=== PATIENT | male | born 1950 | race Caucasian/White ===

== ENCOUNTER → 2017-09-07 | Outpatient (CLI) | payer MEDICARE ==
[~2017-09-07] MED LIST: AVODART0.5 MG; FLOMAX0.4 MG PO; LEVAQUIN500 MG PO; LEVOTHYROXINE112 MCG PO; LIPITOR20 MG PO; NASACORT NS; SINGULAIR10 MG PO; TYLENOL WITH C1 EACH PO
--- NOTE | 2017-09-07 14:57 | Diagnostic Imaging Report ---
PROCEDURE:X-RAY ABDOMEN - KUB COMPARISON:[facility], CT, CT ABDOMEN/PELVIS WO, 05/15/2017, 8:33. INDICATIONS:CALCULI OF KIDNEY FINDINGS: There is a non-obstructed bowel-gas pattern. There are no calcifications projected over the renal shadows, expected course of the ureters or bladder. Multiple pelvic phleboliths. There are no acute osseous abnormalities. Compression deformity of the T8 and L2 vertebral bodies with vertebroplasty changes. CONCLUSION: No radiopaque densities project over the renal shadows, expected course of the ureters or bladder. Specifically, the previously visualized punctate and 2 mm nonobstructing calculi in the inferior pole of the left kidney on CT dated 05/15/2017 are not seen in the current exam. Bairon Huitron M.D. Dictated by: Bairon Huitron M.D. on 09/07/2017 at 14:57 Electronically approved by: Bairon Huitron M.D. on 09/07/2017 at 14:57
== END ==
LOC: RAD 12:40
PROVIDERS: ATTEND Urology
DX: N20.0 Calculus of kidney (principal)
CPT/HCPCS: 74018

== ENCOUNTER → 2018-01-26 | Outpatient (CLI) | payer MEDICARE ==
--- NOTE | 2018-01-26 11:23 | Diagnostic Imaging Report ---
PROCEDURE:X-RAY ABDOMEN - KUB COMPARISON:KUB 09/07/[address] 05/15/2017 INDICATIONS:CALCULUS OF KIDNEY FINDINGS: There is a non-obstructed bowel-gas pattern. There are no calcifications projected over the renal shadows, expected course of the ureters or bladder. The tiny calculi seen on CT 05/15/2017 are not radiographically apparent. Multiple pelvic phleboliths are unchanged. There are no acute osseous abnormalities. Compression deformity of the L2 vertebral body with vertebroplasty changes. CONCLUSION: No radiopaque urolithiasis. Dictated by: Abiel Lawrence M.D. on 01/26/2018 at 11:27 Electronically approved by: Abiel Lawrecne M.D. on 01/26/2018 at 11:27
== END ==
LOC: RAD 10:05
PROVIDERS: ATTEND Urology
DX: N20.0 Calculus of kidney (principal)
CPT/HCPCS: 74018

== ENCOUNTER → 2018-02-27 | Outpatient (CLI) | payer MEDICARE ==
--- NOTE | 2018-02-27 16:36 | Diagnostic Imaging Report ---
PROCEDURE: CT ABDOMEN AND PELVIS WITHOUT CONTRAST TECHNIQUE: The abdomen and pelvis were scanned utilizing a multidetector helical scanner from the diaphragm to the lesser trochanter after the oral administration of water. No IV contrast was administered per renal stone protocol. Coronal and sagittal multiplanar reformations were obtained. COMPARISON: [facility], CT, CT ABDOMEN/PELVIS , 05/15/2017, 8:33. INDICATIONS: left flank pain FINDINGS: ABSENCE OF INTRAVENOUS CONTRAST DECREASES SENSITIVITY FOR DETECTION OF FOCAL LESIONS AND VASCULAR PATHOLOGY. LOWER THORAX: Bilateral lower lobe dependent atelectasis. Focal subsegmental atelectasis versus scarring in the posteromedial left lower lobe (series 3, image 18). HEPATOBILIARY: No focal hepatic lesions. No biliary ductal dilatation. Gallbladder is unremarkable. SPLEEN: No splenomegaly. PANCREAS: No focal masses or ductal dilatation. ADRENALS: No adrenal nodules. KIDNEYS/URETERS: No ureteral calculi, hydronephrosis, or obstruction. * Punctate, nonobstructing calculus in the left interpolar region (series 3, image 62), stable. * 2 mm nonobstructing calculus in the left inferior pole (series 3, image 68), stable. No other renal calculi. No contour abnormalities. No significant perinephric stranding. PELVIC ORGANS/BLADDER: Stable 2.2 x 2.3 cm focal outpouching in the right lobe posterolateral bladder, likely representing a diverticulum. Mild circumferential bladder wall thickening, stable. Stable prostatic enlargement, with dystrophic calcifications. Stable multiple bilateral pelvic phleboliths. PERITONEUM / RETROPERITONEUM: No free air or fluid. LYMPH NODES: No lymphadenopathy. VESSELS: Mild atherosclerotic calcification of the infrarenal abdominal aorta and proximal iliac vessels. GI TRACT: No bowel dilation or evidence of obstruction. Appendix is well identified and normal in caliber. Oval shaped intraluminal hyperdensities in the proximal col of the on likely represent pill remnants. BONES AND SOFT TISSUES:. Stable vertebroplasty changes at L2. Other vertebral body heights are relatively well-preserved. No aggressive lytic lesions. Soft tissues are grossly unremarkable. IMPRESSION: 1. stable nonobstructing calculi in the left kidney. No ureteral calculi, hydronephrosis, or obstruction. 2. Stable right bladder diverticulum. 3. Stable mild circumferential bladder wall thickening, likely due to bladder outlet obstruction from enlarged prostate. Bairon Huitron M.D. Dictated by: Bairon Huitron M.D. on 02/27/2018 at 16:41 Electronically approved by: Bairon Huitron M.D. on 02/27/2018 at 16:41
== END ==
LOC: CT 14:32
PROVIDERS: ATTEND Urology
DX: N20.0 Calculus of kidney (principal)
CPT/HCPCS: 74176

== ENCOUNTER → 2018-10-29 | Outpatient (CLI) | payer MEDICARE ==
--- NOTE | 2018-10-29 17:33 | Diagnostic Imaging Report ---
Exam: KUB-3 views Clinical History: Renal calculus. Comparison: KUB 01/26/[address] abdomen/pelvis 02/27/2018. Findings: Punctate left renal stones noted on prior CT from 02/27/2018 are not well characterized by radiograph. Bowel gas partially obscures visualization of the kidneys. No evidence of calcifications overlying the ureters. Calcified phleboliths project over the pelvis. Nonobstructive bowel gas pattern. There is moderate amount of stool in the colon. No acute osseous abnormality. Compression deformity with L2 vertebral augmentation changes are again noted. Partially seen T8 compression deformity with vertebral augmentation changes. Right L5-S1 pseudarthrosis. Impression: Punctate left renal stones noted on prior CT from 02/27/2018 are not well characterized by radiograph. Signed by: Dr. Gloria Pennington MD on 10/29/2018 5:30 PM
== END ==
LOC: RAD 14:39
PROVIDERS: ATTEND Urology
DX: N20.0 Calculus of kidney (principal)
CPT/HCPCS: 74018

== ENCOUNTER 2022-03-20 10:04 | Emergency (ER) | payer MEDICARE ==
[~2022-03-20] VITALS: Ht 177.8 cm; Wt 80.7 kg
[2022-03-20] MEDS ORDERED: KETOROLAC TROMETHAMINE 30 MG/ML VIAL IM STA (10:23)
[2022-03-20] MEDS ORDERED: ACETAMINOPHEN/CODEINE 300MG - 30MG TAB PO ONE (10:30)
[2022-03-20 11:53] VITALS: BP 123/71
[2022-03-20] MEDS ORDERED: DOXYCYCLINE HY100 MG PO (12:38)
== END 2022-03-20 11:50 | disposition home or self-care (01) ==
LOC: ER 10:10
DX: M25.561 Pain in right knee (principal); M25.461 Effusion, right knee; X50.1XXA Overexertion from prolonged static or awkward postures, initial encounter; E78.00 Pure hypercholesterolemia, unspecified
CPT/HCPCS: 73562; 93971; 99283; J1885